=== PATIENT | male | born 1935 | race Caucasian/White ===

== ENCOUNTER 2018-06-25 10:05 | Day surgery (SDC) | payer MEDICARE, OTHER ==
[~2018-06-25] VITALS: Ht 175.3 cm; Wt 92.7 kg
[~2018-06-25 10:05] MED LIST: Acetaminophen-1 EAC1 PO; Carisoprodol350 MG; Carisoprodol350 MG PO; GABA300T24; HYDR-86; Omeprazole20 M1 PO
--- NOTE | 2018-06-25 10:45 | NUR ---
06/25/18 1045 Gayatri Hernandez 1 MISSED IN BY JASE VALVE 1 GOOD IV IN RFA BY JASE PT TOW
== END 2018-06-25 12:22 | disposition home or self-care (01) ==
LOC: ORSCSDS 10:05
PROVIDERS: Internal Medicine Gastroenterology
PROC: 0DB68ZX Excision of Stomach, Via Natural or Artificial Opening Endoscopic, Diagnostic (ICD-10-PCS; principal; 2018-06-25 11:30)
PROC: 0D758ZZ Dilation of Esophagus, Via Natural or Artificial Opening Endoscopic (ICD-10-PCS; principal; 2018-06-25 11:30)
DX: R13.10 Dysphagia, unspecified (principal); K29.50 Unspecified chronic gastritis without bleeding; B96.81 Helicobacter pylori [H. pylori] as the cause of diseases classified elsewhere; Q27.33 Arteriovenous malformation of digestive system vessel; K20.8 Other esophagitis; Z79.891 Long term (current) use of opiate analgesic; E66.9 Obesity, unspecified; Z68.30 Body mass index [BMI] 30.0-30.9, adult; Z79.899 Other long term (current) drug therapy
CPT/HCPCS: 88305; 88342; J3010; J7120

== ENCOUNTER 2018-07-29 14:49 | Day surgery (SDC) | payer MEDICARE, OTHER ==
--- NOTE | 2018-07-29 15:08 | NUR ---
ADMITTED TO [facility] VSS. COOPERATIVE. Ambulatory in Day Surgery History, Chart, Medications and Allergies reviewed before start of procedure.Patient States Post-Procedure ride home has been arranged.
--- NOTE | 2018-07-29 16:15 | NUR ---
07/29/18 1615 Eliecer Gupta PATIENT DETERMINED TO BE ASA APPROPRIATE FOR PROPOFOL SEDATION PRIOR TO START OF PROCEDURE BY DR. Neeta Mckeon Placed3-LEAD EKG REVIEWED WITH PHYSICIAN PRIOR TO START OF PROCEDURE.History, Chart, Medications and Allergies reviewed before start of procedure.O2 VIA N/C INTACT THROUGHOUT SEDATION/PROCEDURE.
--- NOTE | 2018-07-29 16:43 | NUR ---
FROM ENDO TO STEP VSS ALERT ORIENTED ASKING TO LEAVE INFORMED DR STILL WOULD LIKE TO TALK TO HIM AND WILL BE HERE SHORTLY.
--- NOTE | 2018-07-29 17:01 | NUR ---
Discharge instructions reviewed with patient. Patient verbalizes understanding. Copy given to patient to take home. Patient States Post-Procedure ride home has been arranged. Discharged via wheelchair to private car for ride home.
== END 2018-07-29 22:41 | disposition home or self-care (01) ==
LOC: ORSCMMR 14:49 → ORD 16:30 → ORSCMMR 16:30
PROVIDERS: Internal Medicine Gastroenterology
PROC: 0D758ZZ Dilation of Esophagus, Via Natural or Artificial Opening Endoscopic (ICD-10-PCS; principal; 2018-07-29 16:30)
PROC: 0DJ08ZZ Inspection of Upper Intestinal Tract, Via Natural or Artificial Opening Endoscopic (ICD-10-PCS; principal; 2018-07-29 16:30)
DX: R13.10 Dysphagia, unspecified (principal)
CPT/HCPCS: J7120

== ENCOUNTER 2022-09-05 13:06 | Emergency (ER) | payer MEDICARE, OTHER ==
[~2022-09-05] VITALS: Ht 172.7 cm; Wt 94.3 kg
[2022-09-05 18:09] LABS: BASOPHILS ABSOLUTE AUTO 0.05 K/mm3 (0.00-0.23); BASOPHILS PERCENT AUTO 1 % (0-2); EOSINOPHILS ABSOLUTE AUTO 0.01 K/mm3 (0.00-0.68); EOSINOPHILS PERCENT AUTO 0 % (0-6); Hematocrit 43.6 % (37.0-53.0); Hemoglobin 13.7 g/dL (13.5-17.5); IMMATURE GRAN ABSOLUTE AUTO 0.03 K/mm3 (0.00-0.10); IMMATURE GRAN PERCENT AUTO 0 % (0-1); LYMPHOCYTES ABSOLUTE AUTO 1.31 K/mm3 (0.84-5.20); LYMPHOCYTES PERCENT AUTO 12 % (21-46); MONOCYTES PERCENT AUTO 7 % (4-13); Mean Corpuscular HGB 27.6 pg (26.0-34.0); Mean Corpuscular HGB Conc 31.4 g/dL (31.5-36.5); Mean Corpuscular Volume 88 fL (80-100); Mean Platelet Volume 9.5 fL (9.1-12.4); NEUTROPHILS ABSOLUTE AUTO 8.74 K/mm3 (1.96-9.15); NEUTROPHILS PERCENT AUTO 81 % (41-73); Platelet Count 269 K/mm3 (150-400); RDW Coefficient Variation 13.6 % (11.7-14.2); RDW Standard Deviation 43.7 fL (35.1-46.3); Red Blood Cell Count 4.96 M/mm3 (4.30-5.90); White Blood Cell Count 10.84 K/mm3 (4.00-11.30)
== END 2022-09-05 20:30 | disposition home or self-care (01) ==
LOC: ER 13:06
PROVIDERS: Student in an Organized Health Care Education/Training Program
DX: R04.2 Hemoptysis (principal); Z79.899 Other long term (current) drug therapy; Z87.891 Personal history of nicotine dependence
CPT/HCPCS: 36415; 71046; 71260; 85025; 86850; 86900; 86901; J1885; Q9967

== ENCOUNTER 2023-03-19 12:05 | Emergency (ER) | payer MEDICARE, OTHER ==
[~2023-03-19] VITALS: Ht 172.7 cm; Wt 63.5 kg
[2023-03-19 12:48] LABS: BASOPHILS ABSOLUTE AUTO 0.04 K/mm3 (0.00-0.23); BASOPHILS PERCENT AUTO 0 % (0-2); EOSINOPHILS ABSOLUTE AUTO 0.02 K/mm3 (0.00-0.68); EOSINOPHILS PERCENT AUTO 0 % (0-6); Hematocrit 43.5 % (37.0-53.0); Hemoglobin 13.6 g/dL (13.5-17.5); IMMATURE GRAN ABSOLUTE AUTO 0.04 K/mm3 (0.00-0.10); IMMATURE GRAN PERCENT AUTO 0 % (0-1); LYMPHOCYTES ABSOLUTE AUTO 0.54 K/mm3 (0.84-5.20); LYMPHOCYTES PERCENT AUTO 5 % (21-46); MONOCYTES ABSOLUTE AUTO 0.61 K/mm3 (0.16-1.47); MONOCYTES PERCENT AUTO 6 % (4-13); Mean Corpuscular HGB 27.9 pg (26.0-34.0); Mean Corpuscular HGB Conc 31.3 g/dL (31.5-36.5); Mean Corpuscular Volume 89 fL (80-100); Mean Platelet Volume 9.7 fL (9.1-12.4); NEUTROPHILS ABSOLUTE AUTO 8.79 K/mm3 (1.96-9.15); NEUTROPHILS PERCENT AUTO 88 % (41-73); Platelet Count 272 K/mm3 (150-400); RDW Coefficient Variation 16.2 % (11.7-14.2); RDW Standard Deviation 53.5 fL (35.1-46.3); Red Blood Cell Count 4.87 M/mm3 (4.30-5.90); White Blood Cell Count 10.04 K/mm3 (4.00-11.30)
[2023-03-19 12:58] LABS: Albumin, Blood 2.8 g/dL (3.4-5.0); Albumin/Globulin Ratio 0.6 (0.8-1.8); Bilirubin, Total 0.6 mg/dL (0.1-1.0); Calcium, Blood 8.4 mg/dL (8.5-10.1); Creatinine, Blood 0.87 mg/dL (0.60-1.20); Globulin, Blood 4.6 g/dL (2.2-4.0); Magnesium, Blood 2.5 mg/dL (1.6-2.4); Potassium, Blood 3.8 mmol/L (3.5-5.5); Total Protein, Blood 7.4 g/dL (6.4-8.2)
[2023-03-19] MEDS ORDERED: MORP20L SL (16:23)
[2023-03-19] MEDS ORDERED: METO25ER PO (16:24)
[2023-03-19 19:15] VITALS: BP 126/89
== END 2023-03-19 19:30 | disposition short-term general hospital (02) ==
LOC: ER 12:05
PROVIDERS: Student in an Organized Health Care Education/Training Program
DX: R13.10 Dysphagia, unspecified (principal); E86.0 Dehydration; I48.91 Unspecified atrial fibrillation; C34.90 Malignant neoplasm of unspecified part of unspecified bronchus or lung; K21.9 Gastro-esophageal reflux disease without esophagitis; Z79.899 Other long term (current) drug therapy; Z87.891 Personal history of nicotine dependence
CPT/HCPCS: 70491; 71260; 80053; 83735; 83880; 85025; 93005; 93010; 96374-59; 96375-59; 99285-25; C9113; J1170; J7030; Q9967

== ENCOUNTER → 2023-05-27 | Outpatient (CLI) | payer MEDICARE, OTHER ==
[~2023-05-27] MED LIST changes: +METO25ER PO; +MORP20L SL
== END ==
LOC: LAB 11:47 → LAB SHORT 11:47
DX: D23.4 Other benign neoplasm of skin of scalp and neck (principal)
CPT/HCPCS: 88305

== ENCOUNTER 2023-12-17 20:24 | Inpatient (IN) | payer MEDICARE, OTHER ==
[~2023-12-17] VITALS: Ht 172.7 cm; Wt 79.0 kg
[2023-12-17 20:47] LABS: BASOPHILS ABSOLUTE AUTO 0.08 K/mm3 (0.00-0.23); BASOPHILS PERCENT AUTO 0 % (0-2); EOSINOPHILS PERCENT AUTO 0 % (0-6); Hematocrit 37.2 % (37.0-53.0); Hemoglobin 12.1 g/dL (13.5-17.5); IMMATURE GRAN ABSOLUTE AUTO 0.14 K/mm3 (0.00-0.10); IMMATURE GRAN PERCENT AUTO 1 % (0-1); LYMPHOCYTES ABSOLUTE AUTO 0.44 K/mm3 (0.84-5.20); LYMPHOCYTES PERCENT AUTO 2 % (21-46); MONOCYTES ABSOLUTE AUTO 1.18 K/mm3 (0.16-1.47); MONOCYTES PERCENT AUTO 6 % (4-13); Mean Corpuscular HGB 27.8 pg (26.0-34.0); Mean Corpuscular HGB Conc 32.5 g/dL (31.5-36.5); Mean Corpuscular Volume 86 fL (80-100); Mean Platelet Volume 9.3 fL (9.1-12.4); NEUTROPHILS ABSOLUTE AUTO 16.97 K/mm3 (1.96-9.15); NEUTROPHILS PERCENT AUTO 90 % (41-73); Platelet Count 302 K/mm3 (150-400); RDW Standard Deviation 44.2 fL (35.1-46.3); Red Blood Cell Count 4.35 M/mm3 (4.30-5.90); White Blood Cell Count 18.81 K/mm3 (4.00-11.30)
[2023-12-17 21:06] LABS: Albumin, Blood 2.9 g/dL (3.4-5.0); Albumin/Globulin Ratio 0.6 (0.8-1.8); Bilirubin, Total 1.2 mg/dL (0.1-1.0); Bun/Creatinine Ratio 21.7 (12.0-20.0); Creatinine, Blood 1.57 mg/dL (0.60-1.20); Globulin, Blood 4.5 g/dL (2.2-4.0); Potassium, Blood 3.6 mmol/L (3.5-5.5); Total Protein, Blood 7.4 g/dL (6.4-8.2)
[2023-12-17] MEDS ORDERED: CefTRIAXone Sodium 1,000 MG in NS 50 ML IV ONE (21:50)
[2023-12-17] MEDS ORDERED: NS 1,000 ML IV SCH (22:55)
[2023-12-17] MEDS ORDERED: NS 1,000 ML IV ONE (23:50)
[2023-12-17] MEDS ORDERED: Ondansetron HCl 2 MG / ML 2ML Vial IV PRN (23:50)
[2023-12-17] MEDS ORDERED: FentaNYL Citrate 50 MCG/ML 2 ML Injection IV PRN (23:50)
[2023-12-18] VITALS (16 sets, daily range): BP systolic 103–158; BP diastolic 76–103
[2023-12-18] MEDS ORDERED: Ampicillin Sod/Sulbactam Sod 3 GM in NS 100 ML IV SCH
[2023-12-18 00:26] LABS: International Normalized Ratio 1.07; Prothrombin Time Results 11.4 Sec (9.7-11.5)
[2023-12-18] MEDS ORDERED: OMEP20ER PO (01:04)
[2023-12-18] MEDS ORDERED: XANAX0.25 MG PO (01:04)
[2023-12-18] MEDS ORDERED: HYDROCODONE-AC1 EA19 PO (01:06)
[2023-12-18] MEDS ORDERED: FUROSEMIDE20 MG PO (01:06)
--- NOTE | 2023-12-18 01:20 | NUR ---
NEW ADMIT. PATIENT ADMITTED TO ROOM 345 FROM THE ED. PATIENT ARRIVED TO ROOM 345 VIA GURNEY AND 1P ASSIST. PATIENT ABLE TO STAND AND TRANSFER TO HOSPITAL BED IN ROOM WITH 1P ASSISTANCE. PATIENT TO ROOM WITH STREET CLOTHES AND SHOES-NO OTHER PERSONAL BELONGINGS NOTED. THIS RN TO ASSUME CARE.
[2023-12-18 03:39] LABS: Source, Urine Voided
[2023-12-18 03:41] LABS: Bilirubin, Urine Neg (Neg); Blood, Urine 2+ (Neg); Glucose Qualitative, Urine Neg (Neg); Ketones, Urine 1+ (Neg); Leukocyte Esterase, Urine 1+ (Neg); Nitrite, Urine Neg (Neg); Protein, Urine 2+ (Neg); Urobilinogen, Urine NORM (Normal)
[2023-12-18 03:49] LABS: Appearance, Urine Clear (Clear); Color, Urine Yellow (P-Yellow)
[2023-12-18 03:51] LABS: Bacteria Mod /hpf; Red Blood Cells, Urine 0-2 /hpf (0-2); Squamous Epithelial Cells Few /hpf (Few); White Blood Cells, Urine 0-2 /hpf (0-5)
--- NOTE | 2023-12-18 05:03 | NUR ---
SHIFT SUMMARY. PATIENT A&OX4. PATIENT IS ABLE TO MAKE HIS NEEDS KNOWN. PATIENT USES CALL LIGHT APPROPRIATELY. PATIENT HAS CONSULT WITH SURGERY IN AM. PATIENT IS PLEASANT AND COOPERATIVE WITH CARE-PATIENT IS MODEST AND PREFERS PROVACY-PRIVACY PROVIDED TO PATIENT WITH SAFETY MEASURES IN PLACE. PATIENT C/O ABD PIAN-MEDICATED PER EMAR. PATIENT IS VERY VERY HARD OF HEARING-SPEAK LOUD AND CLEAR IN EAR HAS BEEN BEST WITH COMMUNICATION TONIGHT. BED EXIT ALARM ENGAGED FOR PATIENT SAFETY. PATIENT IS INDEPENDENT AT HOME AND DRIVES HIMSELF TO APPOINTMENTS PER IZABELA LÓPEZ-JENNIFERNT TEMPORARY OFFICE ASSISTANT. PATIENT RESTED OFF AND ON T/O NIGHT. PATIENT HAS SOME DYSPNEA WITH EXCERTION. BED IS LOCKED IN THE LOWEST POSITION WITH CALL LIGHT IN REACH. CARE IS ONGOING.
[2023-12-18 06:24] LABS: BASOPHILS ABSOLUTE AUTO 0.06 K/mm3 (0.00-0.23); BASOPHILS PERCENT AUTO 0 % (0-2); EOSINOPHILS PERCENT AUTO 0 % (0-6); Hematocrit 34.5 % (37.0-53.0); Hemoglobin 10.9 g/dL (13.5-17.5); IMMATURE GRAN ABSOLUTE AUTO 0.12 K/mm3 (0.00-0.10); IMMATURE GRAN PERCENT AUTO 1 % (0-1); LYMPHOCYTES PERCENT AUTO 4 % (21-46); MONOCYTES ABSOLUTE AUTO 1.28 K/mm3 (0.16-1.47); MONOCYTES PERCENT AUTO 7 % (4-13); Mean Corpuscular HGB 27.9 pg (26.0-34.0); Mean Corpuscular HGB Conc 31.6 g/dL (31.5-36.5); Mean Corpuscular Volume 88 fL (80-100); Mean Platelet Volume 9.8 fL (9.1-12.4); NEUTROPHILS ABSOLUTE AUTO 16.76 K/mm3 (1.96-9.15); NEUTROPHILS PERCENT AUTO 88 % (41-73); Platelet Count 280 K/mm3 (150-400); RDW Coefficient Variation 14.1 % (11.7-14.2); RDW Standard Deviation 45.6 fL (35.1-46.3); Red Blood Cell Count 3.91 M/mm3 (4.30-5.90); White Blood Cell Count 19.02 K/mm3 (4.00-11.30)
[2023-12-18 06:47] LABS: Albumin, Blood 2.5 g/dL (3.4-5.0); Albumin/Globulin Ratio 0.6 (0.8-1.8); Bilirubin, Total 0.6 mg/dL (0.1-1.0); Calcium, Blood 8.3 mg/dL (8.5-10.1); Creatinine, Blood 1.64 mg/dL (0.60-1.20); Globulin, Blood 4.2 g/dL (2.2-4.0); Potassium, Blood 3.9 mmol/L (3.5-5.5); Total Protein, Blood 6.7 g/dL (6.4-8.2)
[2023-12-18] MEDS ORDERED: Indocyanine Green 25 MG Vial IV STA (07:45)
--- NOTE | 2023-12-18 07:58 | NUR ---
Patient does not take any blood thiinners. patient denied any blood thinners and confirmed with Elvin flaherty, who manages his medications.
--- NOTE | 2023-12-18 11:00 | NUR ---
PATIENT TRANSFERED TO DAY SURGERY VIA GURNEY. PATIENT ALERT AND INTERACTIVE. PATIENT VERY HARD OF HEARING. GRANDSON AT BEDSIDE.
--- NOTE | 2023-12-18 11:20 | NUR ---
INTO SDS VIA [employer]. PT REPORTS 5/10 RUQ AND LOW BACK PAIN. HISTORY AND ALLERGIES REVIEWED. NPO STATUS CONFIRMED. LUNGS DIMINISHED IN BASES R>L SATS>90% ON RA. ANESTHESIA PROVIDER NOTIFIED OF PT PAIN AND ORDER GIVEN TO MED WITH FENTANYL 50 MCG IVP NOW X 1 NORCO 10/650 MG PO NOW X 1.
[2023-12-18] MEDS ORDERED: Lactated Ringer's 1,000 ML IV SCH (11:25)
[2023-12-18] MEDS ORDERED: FentaNYL Citrate 50 MCG/ML 2 ML Injection IV ONE (11:30)
[2023-12-18] MEDS ORDERED: HYDROcodone 5-APAP 325 TAB PO SCH (11:30)
[2023-12-18] MEDS ORDERED: Lactated Ringer's 1,000 ML IV ONE (11:31)
[2023-12-18] MEDS ORDERED: propofoL 20 ML IV ONE (12:02)
[2023-12-18] MEDS ORDERED: FentaNYL Citrate 50 MCG/ML 5 ML Injection ONE (12:04)
--- NOTE | 2023-12-18 12:18 | NUR ---
#20 PIV TO LEFT HAND (FIELD START) C/D/I FLUSHES WELL.
--- NOTE | 2023-12-18 12:22 | NUR ---
PT REQUESTS TO "TAKE A NAP" PT STATES THAT HIS PAIN IS "MUCH BETTER." REQUEST GRANTED FOR NAP-LIGHTS OFF, CURTAIN PULLED, AND CALL LIGHT PLACED WITHIN PT REACH.
[2023-12-18] MEDS ORDERED: Bupivacaine 0.5% HCl 5 MG/ML 30MLVIAL ONE (12:46)
[2023-12-18] MEDS ORDERED: Rocuronium Bromide 10 MG/ML 5ML Injection IV ONE ×2 (13:09→13:33)
[2023-12-18] MEDS ORDERED: Lidocaine HCl 2% 20 ML MDV ONE (13:10)
[2023-12-18] MEDS ORDERED: Phenylephrine HCl 100 MCG/ML-NS 10MLSYR (1MG/10ML) ONE (13:27)
[2023-12-18] MEDS ORDERED: Sugammadex Sodium 200 MG/2ML SDV (100 MG/ML) ONE (15:23)
[2023-12-18] MEDS ORDERED: Ondansetron HCl 2 MG / ML 2ML Vial ONE (15:36)
[2023-12-18] MEDS ORDERED: FentaNYL Citrate 50 MCG/ML 2 ML Injection ONE (15:57)
[2023-12-18] MEDS ORDERED: HYDROmorphone HCl/Pf 1MG SYR ONE (16:29)
--- NOTE | 2023-12-18 18:48 | NUR ---
SHIFT SUMMARY PATIENT ALERT AND INTERACTIVE BUT VERY HARD OF HEARING. PATIENT RETURNED FROM OR. PATIENT HAVING ABDOMINAL PAIN POST OP. PATIENT MEDICATED WITH PAIN MEDICATIONS. INCISIONS GLUED CLOSED, FRANCISCO DRAIN IN PLACE DRAINING SEROSANG DRAINAGE. ABD TENDER TO PALPATION. SURGEON REPORTING PATIENT TO BE TRANSFERRED TO [facility]. HOSPITALIST CALLED TO REPORT THAT PATIENT ACCEPTED BY DR. OSORIO AND HERNANDEZ ORDERS TO BE PLACED. FAMILY AWARE OF POTENTIAL TRANSFER
--- NOTE | 2023-12-18 21:30 | NUR ---
REPORT CALLED TO [facility] AT APPROX 2145. [facility] COLLECTED PT AND PERSONAL BELONGINGS, PT'S BIBLE SENT IN BELONGINGS BAG. PT WAS ABLE TO STAND AND TRANSFER TO THE [facility], ABLE TO URINATE. PULL-UPS IN PLACE. TRANSPORT PACKET SENT WITH AMBULANCE CREW.
== END 2023-12-18 21:35 | disposition short-term general hospital (02) | DRG 417 ==
LOC: ER 20:24 → MEDS 20:25
PROVIDERS: Emergency Medicine; Surgery; ADMIT Internal Medicine
PROC: 0W9G4ZZ Drainage of Peritoneal Cavity, Percutaneous Endoscopic Approach (ICD-10-PCS; 2023-12-18)
PROC: 8E0W4CZ Robotic Assisted Procedure of Trunk Region, Percutaneous Endoscopic Approach (ICD-10-PCS; 2023-12-18)
PROC: 0FT44ZZ Resection of Gallbladder, Percutaneous Endoscopic Approach (ICD-10-PCS; principal; 2023-12-18 09:30)
DX: K81.0 Acute cholecystitis (principal); A41.9 Sepsis, unspecified organism; K65.3 Choleperitonitis; K65.1 Peritoneal abscess; K82.A2 Perforation of gallbladder in cholecystitis; K55.1 Chronic vascular disorders of intestine; N17.9 Acute kidney failure, unspecified; K82.A1 Gangrene of gallbladder in cholecystitis; N18.30 Chronic kidney disease, stage 3 unspecified; K83.8 Other specified diseases of biliary tract; I48.91 Unspecified atrial fibrillation; Z85.118 Personal history of other malignant neoplasm of bronchus and lung; Z92.3 Personal history of irradiation; Z79.891 Long term (current) use of opiate analgesic; Z79.899 Other long term (current) drug therapy; K21.9 Gastro-esophageal reflux disease without esophagitis; Z85.46 Personal history of malignant neoplasm of prostate; Z87.891 Personal history of nicotine dependence; H91.90 Unspecified hearing loss, unspecified ear; Z90.79 Acquired absence of other genital organ(s); Z98.49 Cataract extraction status, unspecified eye; Z98.890 Other specified postprocedural states
CPT/HCPCS: 36415; 74177; 76705; 80053; 81001; 83605; 83690; 83880; 85025; 85610; 87086; 93005; 93010; 96361; 96365-59; 99285-25; A9270; G0378; J0295; J0696; J1170; J2371; J2405; J2704; J3010; J7030; J7120; Q9967